=== PATIENT | male | born 1945 | race Caucasian/White ===

== ENCOUNTER 2017-08-29 11:18 | Outpatient (CLI) | END 2017-08-29 11:19 | disposition home or self-care (01) | LOC: FCC-LAB 11:18 | PROVIDERS: ATTEND Family Medicine | DX: D64.9 Anemia, unspecified (principal); R00.1 Bradycardia, unspecified; R03.0 Elevated blood-pressure reading, without diagnosis of hypertension; R51 Headache; E53.8 Deficiency of other specified B group vitamins | CPT/HCPCS: 36415; 80053; 82607; 85025; 85651 ==

== ENCOUNTER 2017-11-09 15:19 | Outpatient (CLI) ==
--- NOTE | 2017-11-09 16:03 | US ---
Exam: Quintero-scale and color ultrasonographic evaluation of the right lower extremity venous structures . Comparison: None available. Reason for exam: Localized edema. FINDINGS: There is spontaneous flow with compression and augmentation in the right common femoral, g reater saphenous, profunda, superficial femoral, popliteal, peroneal, posterior tibial, and anterior tibial veins. There is incidental note of a fluid collection in the soft tissues of the anterior medial thigh measu ring at least 5.1 x 1.2 x 3.8 cm without interval vascularity. Impression: 1. No ultrasonographic evidence of thrombus is seen in the right lower extremity venous structures. 2. Incidental note of a 5.1 x 1.2 x 3.8 cm fluid collection in the soft tissues of the anterior media l thigh. Imaging findings can be seen with resolving hematoma, seroma, and post-traumatic/postsurgic al. Recommend correlation with patient history and consider further evaluation.
== END 2017-11-09 15:20 | disposition home or self-care (01) ==
LOC: RAD 15:19
PROVIDERS: ATTEND Family Medicine
DX: R60.0 Localized edema (principal); R60.9 Edema, unspecified; R06.02 Shortness of breath; I83.93 Asymptomatic varicose veins of bilateral lower extremities; R63.5 Abnormal weight gain

== ENCOUNTER 2017-12-02 06:22 | Outpatient (CLI) ==
--- NOTE | 2017-12-05 10:10 | ECHO2D ---
Date of Exam: 12/02/17 Ordering Physician: DR. ZARA RAO Room #: OP Reason for Echo: SOB, EDEMA M-Mode Normal Adult Results LV Dimensions Normal Adult Results AoV Opening excursions >1.6 >1.6 LVEDD-base- 3.5-5.8 6.2 Ao root dimensions 2.0-3.7 3.8 LVESD-base- 3.1-4.6 L. Atrium dimensions 1.9-3.8 5.6 Post. Wall thickness 0.8-1.1 1.4 IV septum (thickness) 0.7-1.2 1.5 Post. Wall excursion 0.72-1.3 NORMAL Septal motion NORMAL Systolic motion R. Ventricular cavity 1.5-2.0 NORMAL LVEF 60% 50 TO 55% Paradoxical septal wall motion NORMAL 2-D : DILATED LEFT VENTRICLE AND LEFT ATRIAL CAVITIES, NORMAL LEFT VENTRICULAR CONTRACTILITY--NORMAL VALVES, NO EFFUSION, NO THROMBUS M-MODE: MV: NORMAL AV: NORMAL TV: NORMAL PV: CHAMBER SIZE: ENLARGED LEFT VENTRICLE AND LEFT ATRIAL CAVITIES WALL MOTION: NORMAL PERICARDIUM: NORMAL INTERPRETATION: 1. LEFT VENTRICULAR HYPERTROPHY (MILD TO MODERATE) 2. ENLARGED LEFT ATRIAL CAVITY (5.6 CM) AND ENLARGED LEFT VENTRICLE CAVITY (6.2 CM) 3. NORMAL LEFT VENTRICULAR CONTRACTILITY WITH EJECTION FRACTION 50 TO 55% 4. NORMAL VALVES MTDD
== END 2017-12-02 06:23 | disposition home or self-care (01) ==
LOC: CAR 06:22
PROVIDERS: ATTEND Family Medicine
DX: R60.9 Edema, unspecified (principal); R06.02 Shortness of breath; R63.5 Abnormal weight gain

== ENCOUNTER 2018-03-20 14:00 | Outpatient (CLI) ==
--- NOTE | 2018-03-20 16:46 | DI ---
EXAM: Two views of the right knee. History: Right knee pain. Findings: No acute fracture or dislocation. Anterior subcutaneous edema. Mild to moderate tricompa rtmental joint space narrowing with osteophytes and marginal sclerosis. There is subtle chondrocalci nosis. Impression: 1. No acute osseous abnormality. 2. 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 3. Chondrocalcinosis. 4. Anterior subcutaneous edema
== END 2018-03-20 14:01 | disposition home or self-care (01) ==
LOC: RAD 14:00
PROVIDERS: ATTEND Family Medicine
DX: M25.561 Pain in right knee (principal)

== ENCOUNTER 2018-05-23 09:07 | Outpatient (CLI) | payer OTHER | END 2018-05-23 09:08 | disposition home or self-care (01) | LOC: LAB 09:07 | PROVIDERS: ATTEND Family Medicine | DX: R00.1 Bradycardia, unspecified (principal); I10 Essential (primary) hypertension | CPT/HCPCS: 36415; 80053; 80061; 85025; 93005; 93010 ==

== ENCOUNTER 2018-11-20 09:19 | Outpatient (CLI) | END 2018-11-20 09:20 | disposition home or self-care (01) | LOC: LAB 09:19 | PROVIDERS: ATTEND Family Medicine | DX: D64.9 Anemia, unspecified (principal); N40.1 Benign prostatic hyperplasia with lower urinary tract symptoms | CPT/HCPCS: 36415; 84153; 85025 ==